=== PATIENT | female | born 1995 | race Caucasian/White ===

== ENCOUNTER → 2018-05-17 | Outpatient (CLI) | payer BC ==
--- NOTE | 2018-05-17 13:22 | RADIOLOGY IMAGING REPORT ---
FACILITY: PATIENT NAME: Mague Villafuerte : 1995 MR: [id number] V: [id number] EXAM DATE: ORDERING PHYSICIAN: RENETTA BATRES TECHNOLOGIST: Location: [facility] - [place] Patient: Mague Villafuerte : 1995 Visit/Account:[id number] Date of Sevice: 05/17/2018 Exam type: TOE RIGHT FOOT GREAT TOE History: 1220 pound weight on toe , pain since Comparison: None. Findings: There is a comminuted oblique fracture through the distal phalanx of the right great toe. Component of the fracture extends to the articular surface at the IP joint and extends distally to just proxima l to the tuft. There is minimal diastases of the fracture fragments IMPRESSION: 1. Comminuted intra-articular fracture to the distal phalanx of the right great toe as described abo ve Report Dictated By: Pilar Carrera MD at 05/17/2018 1:14 PM Report E-Signed By: Pilar Carrera MD at 05/17/2018 1:15 PM WSN:[id number]
== END ==
LOC: RAD 12:17
PROVIDERS: ATTEND Emergency Medicine Sports Medicine
DX: S92.424A Nondisplaced fracture of distal phalanx of right great toe, initial encounter for closed fracture (principal)